=== PATIENT | male | born 1955 | race Caucasian/White ===

== ENCOUNTER 2021-07-24 10:24 | Inpatient (IN) ==
[2021-07-24] MEDS ORDERED: IOPAMIDOL 100 ML BOTTLE IV ONE (10:25)
--- NOTE | 2021-07-24 10:36 | Emergency Department Note ---
Neuro HPI General Chief Complaint: Stroke Symptoms Stated Complaint: stroke symptoms Time Seen by Provider: 07/24/21 10:34 Source: family Mode of arrival: EMS History of Present Illness HPI Narrative: Patient is a 66-year-old gentleman who arrives the emergency department by ambulance accompanied by his planing of occultly speaking. History is provided by the patient and his is somewhat limited due to his aphasia. The patient went to bed in his usual state of health at 9 PM last night. He got up to use the restroom around midnight his noticed he was having some difficulty producing speech and seemed to be quite confused, standing staring at a wall for no apparent reason. He went back to sleep and after awakening this morning he continues to have difficulty communicating. His notes that earlier today his speech did not contain words but was just garbled syllables. His symptoms have been gradually improving since they began. He has had similar problems in the past due to prior strokes. Related Data Home Medications Medication Instructions Recorded Confirmed allopurinol 100 mg tablet 200 mg PO HS 10/20/16 10/16/18 aspirin 81 mg tablet,delayed 81 mg PO DAILY 10/20/16 10/16/18 release fenofibrate nanocrystallized 160 160 mg PO HS 10/20/16 10/16/18 mg tablet (Triglide) fluoxetine 20 mg tablet (Sarafem) 20 mg PO DAILY 10/20/16 10/16/18 metformin 750 mg tablet,extended 750 mg PO BID 10/20/16 10/16/18 release 24 hr (Glucophage XR) metoprolol tartrate 25 mg tablet 25 mg PO BID 10/20/16 10/16/18 warfarin 10 mg tablet (Coumadin) 10 mg PO SUMOWEFR@1800 10/20/16 10/16/18 warfarin 7.5 mg tablet (Coumadin) 7.5 mg PO TUTHSA@1800 10/20/16 10/16/18 enoxaparin 100 mg/mL subcutaneous 100 mg SQ BID 10/16/18 10/16/18 syringe hydrocodone 5 mg-acetaminophen 325 1 tab PO Q8HP PRN 10/16/18 10/16/18 mg tablet hydrocortisone acetate 1 % topical 1 applic TP DAILYP PRN 10/16/18 10/16/18 ointment insulin glargine 100 unit/mL 30 unit SQ DAILY 10/16/18 10/16/18 subcutaneous solution levetiracetam 500 mg tablet 500 mg PO BID 10/16/18 10/16/18 lisinopril 2.5 mg tablet 2.5 mg PO DAILY 10/16/18 10/16/18 multivitamin-iron 9 mg-folic acid 1 tab PO DAILY 10/16/18 10/16/18 400 mcg-calcium and minerals tablet Allergies Allergy/AdvReac Type Severity Reaction Status Date / Time chlorhexidine Allergy Mild Hives Verified 10/16/18 10:04 [From Hibiclens] indomethacin AdvReac Intermediate Vomiting Verified 10/16/18 10:04 Review of Systems ROS ROS Narrative: Narrative: Limitations: ROS unobtainable due to patients medical condition [facility] Narrative Patient History Narrative: Narrative: Medical/Surgical/Family History All Active Problems (Updated 07/24/21 @ 14:56 by Jordy Jewell DO) Right knee sprain (Acute) Patellar tendon rupture (Acute) Acute cerebrovascular accident (CVA) (Acute) Medical History (Updated 07/24/21 @ 14:56 by Jordy Jewell DO) Right knee sprain Social History Smoking Status: Never smoker Alcohol Intake Frequency: holiday/special occasion only Substance Use: does not use Exam Narrative Narrative: I reviewed the vital signs. Gen -patient is awake and alert and in no acute distress. The patient is well groomed. HEENT -head is atraumatic. There is no conjunctival pallor or scleral icterus. Mucous membranes are moist. CV -S1-S2 regular rate and rhythm. Resp -breathing is nonlabored. Lungs are clear to auscultation bilaterally. There is no cyanosis. Derm -skin is warm and dry. MSK -present extremities are atraumatic. Psych -patient has appropriate affect. Neuro -patient answers questions appropriately and is oriented to person, place, time and situation. There is slight dysarthria and subtle expressive aphasia. Facial sensation is symmetric. There is no facial muscular asymmetry. E xtraocular motion is intact. Tongue protrudes in the midline. Palate elevates symmetrically. Shoulder shrug is symmetric. Muscle strength is 5 out of 5 in all 4 extremities. Peripheral sensation is grossly intact to light touch bilaterally. There is no jhqt-[id number] abnormality. There is no mvqktp-hi-ymkr abnormality. Visual barrera are intact to confrontation. NIH stroke scale is 2. Course Vital Signs Vital signs: Vital Signs Temperature 97.6 F 07/24/21 10:26 Pulse Rate 77 07/24/21 10:26 Respiratory Rate 18 07/24/21 10:26 Blood Pressure 148/123 07/24/21 10:26 Pulse Oximetry (%) 96 07/24/21 10:26 Temperature 97.6 F 07/24/21 10:26 Pulse Rate 51 L 07/24/21 14:02 Respiratory Rate 18 07/24/21 14:02 Blood Pressure 108/96 07/24/21 14:02 Pulse Oximetry (%) 97 07/24/21 14:02 MDM MDM Narrative Medical decision making narrative: Patient presents with aphasia and dysarthria. Given the timing of the onset of his symptoms and the mild nature he is not a candidate for IV thrombolytics. CT scan does not reveal any intracranial hemorrhage. There is no large vessel occlusion vascular imaging. On reassessment, the patient continues to have mild aphasia with even more subtle dysarthria than. To his initial exam. I discussed his history examination and diagnostic findings with Dr. Toth from the [place] neurology team. She recommends admission and considering transitioning the patient to a direct oral anticoagulant if his MRI does not reveal any signs of hemorrhage. I discussed the plan with the patient and his and they are agreeable. I discussed the patient's history examination and diagnostic findings with Dr. Lund, who agrees with the plan of care and accepts admission. Lab Data Lab results reviewed: Yes I reviewed the patient's lab results. Result diagrams: 07/24/21 10:37 07/24/21 10:37 Labs: Lab Results 07/24/21 07/24/21 07/24/21 Range/Units 10:37 10:37 10:37 WBC 9.5 (4.5-11.0) K/mcL RBC 5.95 (4.63-6.08) M/mcL Hgb 16.4 (13.7-17.5) g/dL Hct 49.5 (40.1-51.0) % POC Hct 51 (41-55) % MCV 83.2 (80.0-100.0) fL MCH 27.6 (26.0-34.0) pg MCHC 33.1 (31.0-36.0) g/dL RDW 15.5 H (11.5-14.5) % Plt Count 335 (140-440) K/mcL MPV 10.2 (7.4-10.4) fL Neut % (Auto) 81.5 H (38.0-78.0) % Lymph % (Auto) 11.8 L (15.5-49.0) % [place] % (Auto) 5.9 (1.0-12.0) % Eos % (Auto) 0.2 (0.0-7.0) % Baso % (Auto) 0.6 (0.0-2.0) % Lymph # (Auto) 1.12 L (1.50-4.80) K/mcL [place] # (Auto) 0.56 (0.10-0.90) K/mcL Eos # (Auto) 0.02 (0.00-0.70) K/mcL Baso # (Auto) 0.06 (0.00-0.30) K/mcL Absolute Neutrophils 7.76 (1.80-8.00) K/mcL POC PT (11.9-14.5) sec PT 19.3 H (11.9-14.5) sec POC INR (0.8-1.2) INR 1.6 H (0.9-1.1) APTT 33.1 (20.0-37.0) sec POC Sodium 137 (133-145) mEq/L Sodium 133 (133-145) mmol/L POC Potassium 4.3 (3.3-5.1) mEql/L Potassium 4.4 (3.3-5.1) mmol/L POC Chloride 102 (96-108) mEq/L Chloride 99 (96-108) mmol/L Carbon Dioxide 24 (22-30) mmol/L POC Total CO2 23 (22-30) mmol/L Anion Gap 10.0 (8.0-16.0) POC BUN 19 (6-20) mg/dL BUN 16 (8-23) mg/dL Creatinine 1.1 (0.7-1.2) mg/dL POC Creatinine 1.1 (0.6-1.2) mg/dL GFR Calculation 71 Glucose 126 H (70-105) mg/dL POC Glucose 131 H (70-105) mg/dL Calcium 9.6 (8.6-10.4) mg/dL POC WB Ioniz Calcium 1.20 (1.16-1.32) mmEq/L Total Bilirubin 0.4 (0.1-1.0) mg/dL AST 32 (<40) U/L ALT 31 (<40) U/L Alkaline Phosphatase 54 (39-117) U/L Troponin T (<0.03) ng/mL Total Protein 7.2 (5.9-8.4) gm/dL Albumin 4.3 (3.2-5.2) gm/dL Globulin 2.9 (2.2-3.7) gm/dL Albumin/Globulin Ratio 1.5 (1.0-2.3) 07/24/21 07/24/21 Range/Units 10:37 10:37 WBC (4.5-11.0) K/mcL RBC (4.63-6.08) M/mcL Hgb (13.7-17.5) g/dL Hct (40.1-51.0) % POC Hct (41-55) % MCV (80.0-100.0) fL MCH (26.0-34.0) pg MCHC (31.0-36.0) g/dL RDW (11.5-14.5) % Plt Count (140-440) K/mcL MPV (7.4-10.4) fL Neut % (Auto) (38.0-78.0) % Lymph % (Auto) (15.5-49.0) % [place] % (Auto) (1.0-12.0) % Eos % (Auto) (0.0-7.0) % Baso % (Auto) (0.0-2.0) % Lymph # (Auto) (1.50-4.80) K/mcL [place] # (Auto) (0.10-0.90) K/mcL Eos # (Auto) (0.00-0.70) K/mcL Baso # (Auto) (0.00-0.30) K/mcL Absolute Neutrophils (1.80-8.00) K/mcL POC PT 20.7 H (11.9-14.5) sec PT (11.9-14.5) sec POC INR 1.8 H (0.8-1.2) INR (0.9-1.1) APTT (20.0-37.0) sec POC Sodium (133-145) mEq/L Sodium (133-145) mmol/L POC Potassium (3.3-5.1) mEql/L Potassium (3.3-5.1) mmol/L POC Chloride (96-108) mEq/L Chloride (96-108) mmol/L Carbon Dioxide (22-30) mmol/L POC Total CO2 (22-30) mmol/L Anion Gap (8.0-16.0) POC BUN (6-20) mg/dL BUN (8-23) mg/dL Creatinine (0.7-1.2) mg/dL POC Creatinine (0.6-1.2) mg/dL GFR Calculation Glucose (70-105) mg/dL POC Glucose (70-105) mg/dL Calcium (8.6-10.4) mg/dL POC WB Ioniz Calcium (1.16-1.32) mmEq/L Total Bilirubin (0.1-1.0) mg/dL AST (<40) U/L ALT (<40) U/L Alkaline Phosphatase (39-117) U/L Troponin T < 0.01 (<0.03) ng/mL Total Protein (5.9-8.4) gm/dL Albumin (3.2-5.2) gm/dL Globulin (2.2-3.7) gm/dL Albumin/Globulin Ratio (1.0-2.3) ED POC Tests ED POC Tests: PRO - SARS Antigen Negative Discharge Plan Patient/Caregiver Discharge Instructions Pt seen by CLIENT REPRESENTATIVE/PA only: No Clinical Impression: Acute cerebrovascular accident (CVA) Patient Disposition: Xfer As Inpt ([facility]) Condition: Fair Follow up with: Funmi Ferro ARNP [Primary Care Provider] - Prescriptions: No Action warfarin [Coumadin] 10 MG Tablet 10 mg PO SUMOWEFR@1800 0RF warfarin [Coumadin] 7.5 MG Tablet 7.5 mg PO TUTHSA@1800 0RF allopurinol 100 MG Tablet 200 mg PO HS 0RF aspirin 81 MG Tablet.Dr 81 mg PO DAILY 0RF Label Comments: HOLDING FOR SURGERY fluoxetine [Sarafem] 20 MG Tablet 20 mg PO DAILY 0RF metformin [Glucophage XR] 750 MG Tab.Er.24h 750 mg PO BID 0RF metoprolol tartrate 25 MG Tablet 25 mg PO BID 0RF fenofibrate nanocrystallized [Triglide] 160 MG Tablet 160 mg PO HS 0RF insulin glargine 1 UNIT/0.01 ML unit 30 unit SQ DAILY 0RF levetiracetam 500 MG tablet 500 mg PO BID 0RF hydrocortisone acetate 28 GM ointment 1 applic TP DAILYP PRN (Reason: ECZEMA) 0RF Label Comments: APPLY TOPICALLY TO CHEST AND BACK DAILY NEEDED FOR ECZEMA. lisinopril 2.5 MG tablet 2.5 mg PO DAILY 0RF yzipbwwp-qrrx-RN-calcium-mins 1 TAB tablet 1 tab PO DAILY 0RF hydrocodone-acetaminophen 1 TAB tablet 1 tab PO Q8HP PRN (Reason: Pain) 0RF enoxaparin 100 MG/ML syringe 100 mg SQ BID 0RF Label Comments: BRIDGE FOR SURGERY; BEGINNING ON
[2021-07-24 10:49] LABS: POC INR 1.8 (0.8-1.2); POC Pro Time 20.7 sec (11.9-14.5)
[2021-07-24 10:52] LABS: POC Blood Urea Nitrogen 19 mg/dL (6-20); POC CO2 23 mmol/L (22-30); POC Chloride 102 mEq/L (96-108); POC Creatinine 1.1 mg/dL (0.6-1.2); POC Glucose, Random 131 mg/dL (70-105); POC Hematocrit 51 % (41-55); POC Potassium 4.3 mEql/L (3.3-5.1); POC Sodium 137 mEq/L (133-145)
--- NOTE | 2021-07-24 10:52 | Cat Scan Report ---
CLINICAL INFORMATION: Code stroke COMPARISON: None. TECHNIQUE: 2.5 mm helical slices were obtained in the skull base to vertex. Following reconstruction, axial reformatted images were reviewed at bone and parenchymal windows. The exam was performed using radiation dose optimization techniques including, but not limited to, automated exposure control, adjustment of the mA and/or kV according to patient size and use of iterative reconstruction technique. FINDINGS: The ventricles, sulci, fissures, and cisterns are enlarged compatible with moderate atrophy that is slightly more than expected for age. No extra-axial fluid collections are identified. Mild patchy chronic ischemic changes, in the deep cerebral white matter, are expected for age. Remote 6 mm lacunar infarct seen in the left lentiform nucleus. There is no hemorrhage, mass effect, or edema. Bone windows show no osseous abnormality. IMPRESSION: Moderate atrophy and chronic ischemic changes in the deep cerebral white slightly more than expected for age. No acute findings Interpreted and Authenticated by: Danny Khan 07/24/21
[2021-07-24 11:27] LABS: Basophils # (Auto) 0.06 K/mcL (0.00-0.30); Basophils % (Auto) 0.6 % (0.0-2.0); Eosinophils # (Auto) 0.02 K/mcL (0.00-0.70); Eosinophils % (Auto) 0.2 % (0.0-7.0); Hematocrit 49.5 % (40.1-51.0); Hemoglobin 16.4 g/dL (13.7-17.5); Lymphocytes # (Auto) 1.12 K/mcL (1.50-4.80); Lymphocytes % (Auto) 11.8 % (15.5-49.0); Mean Cell Volume 83.2 fL (80.0-100.0); Mean Corpuscular HGB Conc 33.1 g/dL (31.0-36.0); Mean Platelet Volume 10.2 fL (7.4-10.4); Monocytes # (Auto) 0.56 K/mcL (0.10-0.90); Monocytes % (Auto) 5.9 % (1.0-12.0); Neutrophils % (Auto) 81.5 % (38.0-78.0); Platelet Count 335 K/mcL (140-440); RBC 5.95 M/mcL (4.63-6.08); Red Cell Distribution Width 15.5 % (11.5-14.5); WBC 9.5 K/mcL (4.5-11.0)
--- NOTE | 2021-07-24 11:29 | Cat Scan Report ---
CLINICAL INFORMATION: Code stroke COMPARISON: None. TECHNIQUE: 80 cc of Isovue-370 were injected intravenously , and using SmartPrep to maximize cerebral arterial opacification, 0.625 mm helical slices were obtained from the skull base through the cerebral vertex. Following reconstruction , sagittal, coronal and axial reformatted images were processed and reviewed at multiple windows and levels. 3D volume rendered and MIP images were acquired at a independent workstation. The exam was performed using radiation dose optimization techniques including, but not limited to, automated exposure control, adjustment of the mA and/or kV according to patient size and use of iterative reconstruction technique. FINDINGS: The intracranial internal carotid, vertebral, basilar, anterior, middle and posterior cerebral arteries and their branches are well-opacified and normal in contour and caliber without significant stenosis, occlusion or other pathology. Superficial/deep cerebral veins and deep venous sinuses are widely patent IMPRESSION: Normal exam Interpreted and Authenticated by: Danny Khan 07/24/21
--- NOTE | 2021-07-24 11:39 | Cat Scan Report ---
CLINICAL INFORMATION: Code stroke COMPARISON: None. TECHNIQUE: 80 cc of Isovue-300 were injected intravenously followed by 40 cc of normal saline flush. Using SmartPrep, 0.625 helical slices were obtained from the thoracic aortic arch through the marshall of [place]. Following reconstruction, 2.5 mm sagittal, coronal and axial reformatted images were processed. MIPS , 3-D volume rendering and CPR images were also constructed. The exam was performed using radiation dose optimization techniques including, but not limited to, automated exposure control, adjustment of the mA and/or kV according to patient size and use of iterative reconstruction technique. FINDINGS: The thoracic aortic arch is normal diameter with minimal intimal thickening and conventional aortic branching. The brachiocephalic, both subclavian, both common, internal and external carotid and both vertebral arteries are widely patent without significant abnormality. No soft tissue abnormality. IMPRESSION: Normal exam Interpreted and Authenticated by: Danny Khan 07/24/21
[2021-07-24 11:43] LABS: Partial Thromboplastin Time 33.1 sec (20.0-37.0)
[2021-07-24 11:44] LABS: INR 1.6 (0.9-1.1); Prothrombin Time 19.3 sec (11.9-14.5)
[2021-07-24 11:52] LABS: ALT/SGPT 31 U/L (<40); AST/SGOT 32 U/L (<40); Albumin 4.3 gm/dL (3.2-5.2); Albumin/Globulin Ratio 1.5 (1.0-2.3); Alkaline Phosphatase 54 U/L (39-117); Bilirubin,Total 0.4 mg/dL (0.1-1.0); Blood Urea Nitrogen 16 mg/dL (8-23); Calcium 9.6 mg/dL (8.6-10.4); Carbon Dioxide 24 mmol/L (22-30); Chloride 99 mmol/L (96-108); Globulin 2.9 gm/dL (2.2-3.7); Glomerular Filtration Rate 71; Glucose 126 mg/dL (70-105)
--- NOTE | 2021-07-24 13:22 | Internal Med History&Physical ---
HPI History of Present Illness Patient information: Note initiated : 07/24/21 at 1:18 pm Service Date, if different from initiated Date: [] Patient: Faustino White 66 y/o M admitted on for stroke symptoms. Chief Complaint: [] History of present illness: Mr. White is a 66 year old male with a history of hypertension, diabetes mellitus, seizure, mechanical aortic valve, prior CVAs, gout who presented to the emergency department with confusion and difficulty speaking. In the emergency department, the patient was felt to have aphasia concerning for stroke. Noncontrast CT head was negative for acute ischemic changes but there was moderate out for tree and chronic ischemic changes in the deep cerebral white matter slightly more than expected for age, CTA head and neck were normal. INR was 1.6. The patient does take Coumadin for the mechanical aortic valve however has been having difficulty keeping his INR at goal therapeutic levels. The patient was afebrile, vitals stable, routine blood work was fairly unremarkable. Telestroke was consulted, the recommendation was made to admit the patient to the hospital for further work-up and and management that would include MRI brain, permissive blood pressure, n.p.o. until cleared by speech, aspirin until return to full anticoagulation and consideration of transitioning to Eliquis. Hospital medicine was consulted for admission. Review of systems Constitutional: no fever, fatigue, or weight loss Eyes: no vision changes or pain Cardiovascular: no chest pain, no palpitations Respiratory: no cough or dyspnea Gastrointestinal: no abdominal pain, no nausea, vomiting, or diarrhea Genitourinary: no dysuria or difficulty voiding Musculoskeletal: no arthralgia or myalgia Integumentary: no skin lesion or wound Neurological: Positive for dysarthria and aphasia, no focal weakness or numbness Psychiatric: Positive for confusion Physical exam Head: Atraumatic, normal inspection. Eyes: normal appearance, no scleral icterus. Neck: full ROM Respiratory: no respiratory distress. Cardiovascular: Sternotomy scar, normal rate and rhythm, S1, mechanical S2 GI/Abdominal: soft, nontender, no guarding, prior ileostomy scar. Extremities: full range of motion, nontender. Neurological: CN II-XII intact, intact motor, intact sensation, positive for receptive and expressive aphasia Psychiatric: normal mood, positive for confusion. Skin: warm, normal color PFSH PFSH All Active Problems (Updated 10/26/16 @ 07:22 by Lev Hoffman PA-C) Right knee sprain (Acute) Patellar tendon rupture (Acute) Medical History (Updated 10/26/16 @ 07:22 by Lev Hoffman PA-C) Right knee sprain Social History alcohol intake frequency: holiday/special occasion only substance use type: does not use MEDS/ALLERGIES Home Medications and Allergies Home Medications Medication Instructions Recorded Confirmed Type allopurinol 100 mg tablet 200 mg PO HS 10/20/16 10/16/18 History aspirin 81 mg tablet,delayed 81 mg PO DAILY 10/20/16 10/16/18 History release fenofibrate nanocrystallized 160 160 mg PO HS 10/20/16 10/16/18 History mg tablet (Triglide) fluoxetine 20 mg tablet (Sarafem) 20 mg PO DAILY 10/20/16 10/16/18 History metformin 750 mg tablet,extended 750 mg PO BID 10/20/16 10/16/18 History release 24 hr (Glucophage XR) metoprolol tartrate 25 mg tablet 25 mg PO BID 10/20/16 10/16/18 History warfarin 10 mg tablet (Coumadin) 10 mg PO SUMOWEFR@1800 10/20/16 10/16/18 History warfarin 7.5 mg tablet (Coumadin) 7.5 mg PO TUTHSA@1800 10/20/16 10/16/18 History enoxaparin 100 mg/mL subcutaneous 100 mg SQ BID 10/16/18 10/16/18 History syringe hydrocodone 5 mg-acetaminophen 325 1 tab PO Q8HP PRN 10/16/18 10/16/18 History mg tablet hydrocortisone acetate 1 % topical 1 applic TP DAILYP PRN 10/16/18 10/16/18 History ointment insulin glargine 100 unit/mL 30 unit SQ DAILY 10/16/18 10/16/18 History subcutaneous solution levetiracetam 500 mg tablet 500 mg PO BID 10/16/18 10/16/18 History lisinopril 2.5 mg tablet 2.5 mg PO DAILY 10/16/18 10/16/18 History multivitamin-iron 9 mg-folic acid 1 tab PO DAILY 10/16/18 10/16/18 History 400 mcg-calcium and minerals tablet Allergies Allergy/AdvReac Type Severity Reaction Status Date / Time chlorhexidine Allergy Mild Hives Verified 10/16/18 10:04 [From Hibiclens] indomethacin AdvReac Intermediate Vomiting Verified 10/16/18 10:04 EXAM Constitutional Vitals: Temp Pulse Resp BP Pulse Ox 97.6 F 73 18 129/76 96 07/24/21 10:26 07/24/21 12:31 07/24/21 12:31 07/24/21 12:31 07/24/21 12:31 DATA Data Completed and Pending Labs: Labs from last 24 hours 07/24/21 07/24/21 07/24/21 10:37 10:37 10:37 WBC RBC Hgb Hct POC Hct 51 MCV MCH MCHC RDW Plt Count MPV Neut % (Auto) Lymph % (Auto) [place] % (Auto) Eos % (Auto) Baso % (Auto) Lymph # (Auto) [place] # (Auto) Eos # (Auto) Baso # (Auto) Absolute Neutrophils POC PT 20.7 H PT POC INR 1.8 H INR APTT POC Sodium 137 Sodium 133 POC Potassium 4.3 Potassium 4.4 POC Chloride 102 Chloride 99 Carbon Dioxide 24 POC Total CO2 23 Anion Gap 10.0 POC BUN 19 BUN 16 Creatinine 1.1 POC Creatinine 1.1 GFR Calculation 71 Glucose 126 H POC Glucose 131 H Calcium 9.6 POC WB Ioniz Calcium 1.20 Total Bilirubin 0.4 AST 32 ALT 31 Alkaline Phosphatase 54 Troponin T < 0.01 Total Protein 7.2 Albumin 4.3 Globulin 2.9 Albumin/Globulin Ratio 1.5 07/24/21 07/24/21 10:37 10:37 WBC 9.5 RBC 5.95 Hgb 16.4 Hct 49.5 POC Hct MCV 83.2 MCH 27.6 MCHC 33.1 RDW 15.5 H Plt Count 335 MPV 10.2 Neut % (Auto) 81.5 H Lymph % (Auto) 11.8 L [place] % (Auto) 5.9 Eos % (Auto) 0.2 Baso % (Auto) 0.6 Lymph # (Auto) 1.12 L [place] # (Auto) 0.56 Eos # (Auto) 0.02 Baso # (Auto) 0.06 Absolute Neutrophils 7.76 POC PT PT 19.3 H POC INR INR 1.6 H APTT 33.1 POC Sodium Sodium POC Potassium Potassium POC Chloride Chloride Carbon Dioxide POC Total CO2 Anion Gap POC BUN BUN Creatinine POC Creatinine GFR Calculation Glucose POC Glucose Calcium POC WB Ioniz Calcium Total Bilirubin AST ALT Alkaline Phosphatase Troponin T Total Protein Albumin Globulin Albumin/Globulin Ratio A/P Narrative A/P Narrative: Assessment: 66 year old male with a history of hypertension, diabetes mellitus, seizure, mechanical aortic valve, prior CVAs, gout who presented to the emergency department with confusion and difficulty speaking, admitted for work- up of acute ischemic stroke. Noncontrast CT head did not reveal an acute infarct, CTA head and neck were normal. INR in the ED was 1.6. #Receptive and expressive aphasia #Encephalopathy #Concern for acute ischemic stroke #Mechanical aortic valve on Coumadin #Subtherapeutic INR #History of ischemic stroke #Diabetes mellitus #Gout #Obesity BMI 37 Plan -Aspirin 81 mg daily until return to full anticoagulation. -Permissive blood pressure, labetalol IV as needed for BP > 220/110. -Neurochecks and NIHSS. -MRI brain. -Transthoracic echocardiogram. -Hemoglobin A1c and lipid panel. -Home medication reconciliation, resume essential meds. -Consider starting Eliquis if MRI brain negative for hemorrhage, otherwise resume Coumadin with Lovenox bridge. -PT/OT/speech consults. -N.p.o. pending speech evaluation. -DVT prophylaxis: Lovenox until full anticoagulation resumed. -CODE STATUS: Full -Disposition: TBD, will depend on therapy recommendations and clinical course. Time Spent With Patient Time: Total time spent is greater than 50% in coordination of care (as documented) at patient's floor/unit and/or counseling patient: QUALITY Stroke Symptom Onset Unknown: Yes
[2021-07-24] MEDS ORDERED: LABETALOL 5 MG/ML ML IV PRN (17:22)
[2021-07-24] MEDS ORDERED: ONDANSETRON 4 MG/2 ML VIAL IV PRN (17:22)
--- NOTE | 2021-07-24 18:24 | Magnetic Resonance Report ---
CLINICAL INFORMATION: Dysarthria COMPARISON: None. TECHNIQUE:Sagittal T1 FLAIR, axial diffusion ADC and axial T2 FLAIR were obtained. FINDINGS: The ventricles, sulci, fissures and cisterns are symmetrically enlarged without mild age-related atrophy. No extra-axial fluid collections identified. Scattered chronic ischemic foci in deep cerebral white matter expected for age. There is a 1 cm remote lacunar infarct in the right frontal periventricular white matter. No region of restricted diffusion to suggest an acute infarct. No hemorrhage or edema. IMPRESSION: Mild atrophy with scattered chronic deep cerebral white matter ischemia remote lacunar infarct deep right frontal white matter. No evidence of an acute infarct or hemorrhage. Interpreted and Authenticated by: Danny Khan 07/24/21
[2021-07-24 18:47] LABS: INR 1.5 (0.9-1.1); Prothrombin Time 18.6 sec (11.9-14.5)
[2021-07-24] MEDS: DOCUSATE SODIUM 100 MG CAPSULE PO SCH (20:00)
[2021-07-24] MEDS: 0.9 % SODIUM CHLORIDE 10 ML SYRINGE IV SCH ×2 (20:03→21:30)
[2021-07-24] MEDS ORDERED: SENNOSIDES 1 TABLET PO SCH (21:00)
[2021-07-24] MEDS: ENOXAPARIN 120 MG/0.8 ML SYRINGE SQ SCH ×2 (21:26→21:29)
[2021-07-25] MEDS: 0.9 % SODIUM CHLORIDE 10 ML SYRINGE IV SCH (05:02)
[2021-07-25 07:15] LABS: INR 1.4 (0.9-1.1)
[2021-07-25 07:44] LABS: Hemoglobin A1C 6.2 % Hgb (4.0-6.0)
[2021-07-25] MEDS ORDERED: ENOXAPARIN 40 MG/0.4 ML SYRINGE SQ SCH (09:00)
[2021-07-25] MEDS ORDERED: ASPIRIN 81 MG TAB.CHEW CHEWED SCH (09:00)
--- NOTE | 2021-07-25 11:00 | Discharge Summary ---
Discharge Provider Provider Patient information: Note initiated : 07/25/21 at 10:54 am Service Date, if different from initiated Date: [] Patient: Faustino White 66 y/o M admitted on 07/24/21 for stroke symptoms. Chief Complaint: [] Date of admission: 07/24/21 17:10 Discharge date: 07/25/21 Primary care physician: Funmi Ferro Consults: 07/24/21 Consult to Physician [CONS] Stat Comment: Consulting Provider: Yfn Lund Reason For Exam: Physician to Consult Discharge Meds Discharge Medications Home Medications allopurinol 100 mg tablet 200 mg PO HS 10/20/16 [History Confirmed 07/24/21 Last Taken Unknown] aspirin 81 mg tablet,delayed release 81 mg PO DAILY 10/20/16 [History Confirmed 07/24/21 Last Taken 10/20/16] fenofibrate nanocrystallized 160 mg tablet (Triglide) 160 mg PO HS 10/20/16 [History Confirmed 07/24/21 Last Taken Unknown] fluoxetine 20 mg tablet (Sarafem) 20 mg PO DAILY 10/20/16 [History Confirmed 07/24/21 Last Taken Unknown] metformin 750 mg tablet,extended release 24 hr (Glucophage XR) 750 mg PO BID 10/20/16 [History Confirmed 07/24/21 Last Taken 10/24/16] metoprolol tartrate 25 mg tablet 25 mg PO BID 10/20/16 [History Confirmed 07/24/21 Last Taken 10/25/16 09:00] warfarin 10 mg tablet (Coumadin) See Rx Instructions .ROUTE .COMPLEX 10/20/16 [History Confirmed 07/24/21 Last Taken 10/20/16] warfarin 7.5 mg tablet (Coumadin) 7.5 mg PO TUTHSA@1800 10/20/16 [History Confirmed 07/24/21 Last Taken 10/20/16] hydrocortisone acetate 1 % topical ointment 1 applic TP DAILYP PRN 10/16/18 [History Confirmed 07/24/21 Last Taken Unknown] insulin glargine 100 unit/mL subcutaneous solution (Lantus U-100 Insulin) 25 unit SQ DAILY 10/16/18 [History Confirmed 07/24/21 Last Taken Unknown] levetiracetam 500 mg tablet (Keppra) 500 mg PO AC 10/16/18 [History Confirmed 07/24/21 Last Taken Unknown] lisinopril 2.5 mg tablet (Zestril) 2.5 mg PO DAILY 10/16/18 [History Confirmed 07/24/21 Last Taken Unknown] multivitamin-iron 9 mg-folic acid 400 mcg-calcium and minerals tablet 1 tab PO D AILY 10/16/18 [History Confirmed 07/24/21 Last Taken Unknown] levetiracetam 750 mg tablet (Keppra) 750 mg PO HS 07/24/21 [History Confirmed 07/24/21 Last Taken Unknown] enoxaparin 120 mg/0.8 mL subcutaneous syringe 120 mg (0.8 mL) SUBCUT BID 5 Days #8 ml 07/25/21 [Rx Last Taken Unknown] COURSE Hospital Course Hospital course: Mr. White is a 66 year old male with a history of hypertension, diabetes mellitus, seizure, mechanical aortic valve, prior CVAs, gout who presented to the emergency department with confusion and difficulty speaking. In the emergency department, the patient was felt to have aphasia concerning for stroke. Noncontrast CT head was negative for acute ischemic changes but there was moderate out for tree and chronic ischemic changes in the deep cerebral white matter slightly more than expected for age, CTA head and neck were normal. INR was 1.6. The patient does take Coumadin for the mechanical aortic valve however has been having difficulty keeping his INR at goal therapeutic levels. The patient was afebrile, vitals stable, routine blood work was fairly unremarkable. Telestroke was consulted, the recommendation was made to admit the patient to the hospital for further work-up and and management that would include MRI brain, permissive blood pressure, n.p.o. until cleared by speech, aspirin until return to full anticoagulation and consideration of transitioning to Eliquis. Hospital medicine was consulted for admission. 07/25 MRI brain was negative for acute infarcts, there was mild atrophy with scattered chronic deep cerebral white matter ischemic changes, a remote lacunar infarct in the deep right frontal white matter. The patient is back to baseline today. I suspect the patient's aphasia was secondary to a confusional state similar to delirium, he is at risk for this given the prior frontal lobe stroke. The patient likely has cognitive impairment at baseline and increased risk for developing dementia. I discussed the patient with neurology at [facility], the recommendation was to continue Coumadin for anticoagulation for the patient's mechanical aortic valve. The patient is also on aspirin 81 mg daily. The patient was started on therapeutic Lovenox as a anticoagulation bridge until INR is therapeutic once again. The patient was discharged to home, he will resume Coumadin as before admission and follow with the INR clinic. 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 Transthoracic echocardiogram report pending at discharge. Physical exam Head: Atraumatic, normal inspection. Eyes: normal appearance, no scleral icterus. Neck: full ROM Respiratory: no respiratory distress. Cardiovascular: Sternotomy scar, normal rate and rhythm, S1, mechanical S2 GI/Abdominal: soft, nontender, no guarding, prior ileostomy scar. Extremities: full range of motion, nontender. Neurological: CN II-XII intact, intact motor, intact sensation, positive for receptive and expressive aphasia Psychiatric: normal mood, positive for confusion. Skin: warm, normal color Discharge diagnosis: Resolved aphasia Secondary discharge diagnosis: Mechanical aortic valve History of stroke Time Spent with Patient Time attestation: Total time spent providing and/or coordinating discharge services: EXAM Constitutional Vitals: Temp Pulse Resp BP Pulse Ox 97.1 F 68 20 118/69 93 07/25/21 07:24 07/25/21 07:24 07/25/21 07:24 07/25/21 07:24 07/25/21 07:24 Discharge Data Data Completed and Pending Labs on day of discharge: Labs from last 24 hours 07/25/21 07/25/21 07/24/21 06:06 06:05 17:34 WBC RBC Hgb Hct MCV MCH MCHC RDW Plt Count MPV Neut % (Auto) Lymph % (Auto) [place] % (Auto) Eos % (Auto) Baso % (Auto) Lymph # (Auto) [place] # (Auto) Eos # (Auto) Baso # (Auto) Absolute Neutrophils PT 18.0 H 18.6 H INR 1.4 H 1.5 H APTT Sodium Potassium Chloride Carbon Dioxide Anion Gap BUN Creatinine GFR Calculation Glucose Hemoglobin A1c 6.2 H Estim Average Glucose 131 Calcium Total Bilirubin AST ALT Alkaline Phosphatase Troponin T Total Protein Albumin Globulin Albumin/Globulin Ratio Triglycerides 319 H Cholesterol 168 LDL Cholesterol, Calc 81 Non-HDL Cholesterol 144 H HDL Cholesterol 24 L 07/24/21 07/24/21 07/24/21 10:37 10:37 10:37 WBC RBC Hgb Hct MCV MCH MCHC RDW Plt Count MPV Neut % (Auto) Lymph % (Auto) [place] % (Auto) Eos % (Auto) Baso % (Auto) Lymph # (Auto) [place] # (Auto) Eos # (Auto) Baso # (Auto) Absolute Neutrophils PT 19.3 H INR 1.6 H APTT 33.1 Sodium 133 Potassium 4.4 Chloride 99 Carbon Dioxide 24 Anion Gap 10.0 BUN 16 Creatinine 1.1 GFR Calculation 71 Glucose 126 H Hemoglobin A1c Estim Average Glucose Calcium 9.6 Total Bilirubin 0.4 AST 32 ALT 31 Alkaline Phosphatase 54 Troponin T < 0.01 Total Protein 7.2 Albumin 4.3 Globulin 2.9 Albumin/Globulin Ratio 1.5 Triglycerides Cholesterol LDL Cholesterol, Calc Non-HDL Cholesterol HDL Cholesterol 07/24/21 10:37 WBC 9.5 RBC 5.95 Hgb 16.4 Hct 49.5 MCV 83.2 MCH 27.6 MCHC 33.1 RDW 15.5 H Plt Count 335 MPV 10.2 Neut % (Auto) 81.5 H Lymph % (Auto) 11.8 L [place] % (Auto) 5.9 Eos % (Auto) 0.2 Baso % (Auto) 0.6 Lymph # (Auto) 1.12 L [place] # (Auto) 0.56 Eos # (Auto) 0.02 Baso # (Auto) 0.06 Absolute Neutrophils 7.76 PT INR APTT Sodium Potassium Chloride Carbon Dioxide Anion Gap BUN Creatinine GFR Calculation Glucose Hemoglobin A1c Estim Average Glucose Calcium Total Bilirubin AST ALT Alkaline Phosphatase Troponin T Total Protein Albumin Globulin Albumin/Globulin Ratio Triglycerides Cholesterol LDL Cholesterol, Calc Non-HDL Cholesterol HDL Cholesterol Discharge Plan Patient/Caregiver Discharge Instructions Activity: increase activity as tolerated Diet: Consistent Carbohydrate Prescriptions: New enoxaparin 120 mg/0.8 mL Syringe 120 mg subcut BID 5 Days Qty: 8 2RF Rx Instructions: Take lovenox twice a day until INR at goal range. Continued warfarin [Coumadin] 10 MG tablet See Rx Instructions .ROUTE .COMPLEX 0RF Rx Instructions: 10 mg orally tuesday and tuesday only warfarin [Coumadin] 7.5 MG tablet 7.5 mg PO TUTHSA@1800 0RF allopurinol 100 MG tablet 200 mg PO HS 0RF aspirin 81 MG tablet,delayed release (DR/EC) 81 mg PO DAILY 0RF Label Comments: HOLDING FOR SURGERY fluoxetine [Sarafem] 20 MG tablet 20 mg PO DAILY 0RF metformin [Glucophage XR] 750 MG tablet extended release 24 hr 750 mg PO BID 0RF metoprolol tartrate 25 MG tablet 25 mg PO BID 0RF fenofibrate nanocrystallized [Triglide] 160 MG tablet 160 mg PO HS 0RF Lantus U-100 Insulin 1 UNIT/0.01 ML unit 25 unit SQ DAILY 0RF levetiracetam [Keppra] 500 MG tablet 500 mg PO AC 0RF hydrocortisone acetate 28 GM ointment 1 applic TP DAILYP PRN (Reason: ECZEMA) 0RF Label Comments: APPLY TOPICALLY TO CHEST AND BACK DAILY NEEDED FOR ECZEMA. lisinopril [Zestril] 2.5 MG tablet 2.5 mg PO DAILY 0RF pjbvwebo-jmyx-EF-calcium-mins 1 TAB tablet 1 tab PO DAILY 0RF levetiracetam [Keppra] 750 mg Tablet 750 mg PO HS 0RF Discontinued enoxaparin [Lovenox] 100 MG/ML syringe 100 mg SQ BID 0RF Label Comments: BRIDGE FOR SURGERY; BEGINNING ON Follow Up Plan Follow up with: Funmi Ferro ARNP [Primary Care Provider] - Patient Disposition: Home, Self-Care Prognosis: Fair Overall status at discharge: patient is back to baseline Discharge Orders: Discharge Order (Routine); Ordered 07/25/21 Ordered By: Yfn OLIVARES VTE Deep Vein Thrombosis/Pulmonary Embolism Present on Admission: No
[2021-07-25] MEDS: DOCUSATE SODIUM 100 MG CAPSULE PO SCH (11:16)
[2021-07-25] MEDS: ENOXAPARIN 120 MG/0.8 ML SYRINGE SQ SCH (11:17)
--- NOTE | 2021-07-26 09:25 | EKG ---
[facility] Test Date: 2021-07-24 Pat Name: Faustino White Department: ED Room: Gender: Male Compliance Administrator: MYAH : [id number] Requested By: Jordy Jewell Order Number: [id number] Reading MD: Jax Michael Measurements Intervals [place] Rate: 72 P: -9 IA: 262 QRS: 38 QRSD: 173 T: 15 QT: 438 QTc: 480 Interpretive Statements Sinus rhythm Prolonged IA interval Right bundle branch block Electronically Signed On 07-26-2021 9:25:17 PDT by Jax Michael /[id number]
== END 2021-07-25 12:40 | disposition home or self-care (01) | DRG 886 ==
LOC: ED 10:24 → MEDSUR 17:10
PROVIDERS: ADMIT Internal Medicine; ATTEND Internal Medicine

== ENCOUNTER 2023-03-30 12:19 | Inpatient (IN) ==
[2023-03-30] MEDS ORDERED: IOPAMIDOL 100 ML BOTTLE IV ONE (12:20)
[2023-03-30] MEDS ORDERED: PIPERACILLIN SODIUM/TAZOBACTAM 3.375 GM in DEXTROSE 5% IN WATER 50 ML IV ONE (12:29)
[2023-03-30] MEDS ORDERED: VANCOMYCIN 1,500 MG in 0.9 % SODIUM CHLORIDE 500 ML IV ONE (12:29)
[2023-03-30] MEDS ORDERED: 0.9 % SODIUM CHLORIDE 1,000 ML IV ONE ×2 (12:31)
[2023-03-30] MEDS ORDERED: ACETAMINOPHEN 1,000 MG/100 ML BAG IV ONE ×2 (12:37→23:21)
[2023-03-30 12:44] LABS: POC Calcium, Ionized 1.09 (1.16-1.32); POC Creatinine 1.1 (0.6-1.2); POC Potassium 4.5 (3.3-5.1)
[2023-03-30] MEDS ORDERED: 0.9 % SODIUM CHLORIDE 250 ML IV SCH ×4 (13:30→16:00)
[2023-03-30] MEDS ORDERED: NOREPINEPHRINE BITARTRATE 8 MG in 0.9 % SODIUM CHLORIDE 242 ML IV SCH (13:30)
[2023-03-30] MEDS ORDERED: VASOPRESSIN 20 UNIT in DEXTROSE 5% IN WATER 99 ML IV SCH ×2 (14:00→14:45)
[2023-03-30] MEDS ORDERED: KETOROLAC 30 MG/ML VIAL IV ONE (14:16)
[2023-03-30 14:37] LABS: Basophils # (Auto) 0.04 K/mcL (0.00-0.30); Basophils % (Auto) 0.3 % (0.0-2.0); Eosinophils # (Auto) 0 K/mcL (0.00-0.70); Eosinophils % (Auto) 0 % (0.0-7.0); Hematocrit 49.1 % (40.1-51.0); Hemoglobin 15.7 g/dL (13.7-17.5); Lymphocytes # (Auto) 0.48 K/mcL (1.50-4.80); Lymphocytes % (Auto) 3.8 % (15.5-49.0); Mean Cell Volume 80.2 fL (80.0-100.0); Mean Platelet Volume 10.3 fL (8.8-12.5); Monocytes # (Auto) 0.51 K/mcL (0.10-0.90); Neutrophils % (Auto) 91.3 % (38.0-78.0); Platelet Count 219 K/mcL (140-440); RBC 6.12 M/mcL (4.63-6.08); Red Cell Distribution Width 18.4 % (11.5-14.5); WBC 12.7 K/mcL (4.5-11.0)
[2023-03-30 14:50] LABS: proBNP 804.7 pg/mL (<125.0)
[2023-03-30 15:13] LABS: INR 9.7 (0.9-1.1); Prothrombin Time 81.1 sec (11.9-14.5)
[2023-03-30 15:34] LABS: POC Calcium, Ionized 1.05 (1.16-1.32); POC Creatinine 1.4 (0.6-1.2); POC Potassium 3.9 (3.3-5.1)
[2023-03-30] MEDS ORDERED: EPINEPHrine 4 MG in 0.9 % SODIUM CHLORIDE 246 ML IV SCH (16:00)
[2023-03-30 17:17] LABS: Appearance,Urine CLOUDY (Clear); Bacteria,Urine FEW /hpf (0); Bilirubin,Urine Negative (Negative); Color,Urine Amber; Culture Indicated,Urine Yes; Glucose,Urine (UA) Negative (Negative); Ketones,Urine Negative (Negative); Leukocyte Esterase,Urine 250 /uL (Negative); Mucus,Urine MOD /hpf; Nitrate,Urine Negative (Negative); Protein,Urine 100 mg/dL (Negative); Specific Gravity,Urine 1.047 (1.000-1.035); Urine Budding Yeast FEW /hpf; Urine RBC 112 /hpf (0-3); Urine Squamous Epithelial Cell < 1 /hpf (0-4); Urine WBC > 182 /hpf (0-4)
[2023-03-30 18:02] LABS: ALT/SGPT 28 U/L (<40); AST/SGOT 25 U/L (<40); Albumin 3.6 gm/dL (3.2-5.2); Alkaline Phosphatase 76 U/L (39-117); Bilirubin,Direct 0.8 mg/dL (<0.3); Bilirubin,Total 1.7 mg/dL (0.1-1.0); Globulin 2.3 gm/dL (2.2-3.7)
[2023-03-30] MEDS ORDERED: fentaNYL 100 MCG/2 ML VIAL IV ONE (18:33)
[2023-03-30] MEDS ORDERED: IPRATROPIUM/ALBUTEROL 3 ML AMPUL.NEB NEB PRN (19:37)
[2023-03-30] MEDS ORDERED: ALBUTEROL SULFATE 2.5 MG/3 ML NEBULIZER NEB PRN (19:37)
[2023-03-30] MEDS ORDERED: morphine 4 MG/ML VIAL NEB PRN (19:37)
[2023-03-30] MEDS ORDERED: LACTOPEROXI/GLUC OXID/POT THIO 1 EACH GEL..EA. TOPICAL PRN (19:37)
[2023-03-30] MEDS ORDERED: LORazepam 2 MG/ML VIAL IV PRN (19:37)
[2023-03-30] MEDS ORDERED: morphine 4 MG/ML VIAL IV PRN (19:37)
[2023-03-30] MEDS ORDERED: ONDANSETRON 4 MG/2 ML VIAL IV PRN ×2 (19:37)
[2023-03-30] MEDS ORDERED: HYDROmorphone 1 MG/ML SYRINGE IV PRN (19:37)
[2023-03-30] MEDS ORDERED: ONDANSETRON 4 MG ODT TABLET SL PRN (19:37)
[2023-03-30] MEDS ORDERED: DOCUSATE SODIUM 100 MG CAPSULE PO SCH (21:00)
[2023-03-30] MEDS: DOCUSATE SODIUM 100 MG CAPSULE PO SCH (21:04)
[2023-03-30] MEDS: SCOPOLAMINE 1 PATCH PATCH TOPICAL SCH (21:04)
[2023-03-30] MEDS: 0.9 % SODIUM CHLORIDE 10 ML SYRINGE IV SCH (21:04)
[2023-03-30] MEDS: SENNOSIDES 1 TABLET PO SCH (21:04)
[2023-03-30] MEDS ORDERED: VANCOMYCIN PER PHARMACY IV ONE (21:43)
[2023-03-30] MEDS ORDERED: DEXTROSE 31 GM ORAL.SUSP PO PRN (21:45)
[2023-03-30] MEDS ORDERED: DEXTROSE 50% 50 ML VIAL IV PRN (21:45)
[2023-03-30] MEDS ORDERED: 0.9 % SODIUM CHLORIDE 10 ML SYRINGE IV SCH (22:00)
[2023-03-30] MEDS: 0.9 % SODIUM CHLORIDE 1,000 ML IV SCH (22:21)
[2023-03-30] MEDS: PIPERACILLIN SODIUM/TAZOBACTAM 3.375 GM in DEXTROSE 5% IN WATER 50 ML IV SCH (22:43)
[2023-03-30] MEDS: ACETAMINOPHEN 1,000 MG/100 ML BAG IV PRN (23:22)
[2023-03-31] MEDS: 0.9 % SODIUM CHLORIDE 1,000 ML IV SCH ×5 (05:19→21:31)
[2023-03-31] MEDS: 0.9 % SODIUM CHLORIDE 10 ML SYRINGE IV SCH ×4 (05:29→21:33)
[2023-03-31] MEDS: PIPERACILLIN SODIUM/TAZOBACTAM 3.375 GM in DEXTROSE 5% IN WATER 50 ML IV SCH (05:29)
[2023-03-31] MEDS ORDERED: ACETAMINOPHEN 1,000 MG/100 ML BAG IV ONE (05:46)
[2023-03-31] MEDS: ACETAMINOPHEN 1,000 MG/100 ML BAG IV PRN ×3 (05:48→17:47)
[2023-03-31 06:36] LABS: Basophils # (Auto) 0.05 K/mcL (0.00-0.30); Basophils % (Auto) 0.4 % (0.0-2.0); Eosinophils # (Auto) 0.02 K/mcL (0.00-0.70); Eosinophils % (Auto) 0.1 % (0.0-7.0); Hematocrit 41.3 % (40.1-51.0); Hemoglobin 13.2 g/dL (13.7-17.5); Lymphocytes # (Auto) 0.53 K/mcL (1.50-4.80); Lymphocytes % (Auto) 3.7 % (15.5-49.0); Mean Platelet Volume 10.2 fL (8.8-12.5); Monocytes % (Auto) 6.3 % (1.0-12.0); Neutrophils % (Auto) 88.9 % (38.0-78.0); Platelet Count 173 K/mcL (140-440); Red Cell Distribution Width 17.2 % (11.5-14.5); WBC 14.3 K/mcL (4.5-11.0)
[2023-03-31 06:58] LABS: INR 10.9 (0.9-1.1); Prothrombin Time 89.3 sec (11.9-14.5)
[2023-03-31 07:02] LABS: ALT/SGPT 24 U/L (<40); AST/SGOT 27 U/L (<40); Albumin 3.1 gm/dL (3.2-5.2); Albumin/Globulin Ratio 1.3 (1.0-2.3); Alkaline Phosphatase 61 U/L (39-117); Blood Urea Nitrogen 28 mg/dL (8-23); Calcium 8.2 mg/dL (8.6-10.4); Carbon Dioxide 22 mmol/L (22-30); Chloride 103 mmol/L (96-108); Globulin 2.3 gm/dL (2.2-3.7); Glomerular Filtration Rate 57; Glucose 147 mg/dL (70-105)
[2023-03-31] MEDS: DOCUSATE SODIUM 100 MG CAPSULE PO SCH ×2 (08:16→20:13)
[2023-03-31] MEDS: INSULIN LISPRO 1 UNIT/0.01 ML UNIT SQ SCH ×4 (08:16→20:42)
[2023-03-31] MEDS ORDERED: PHYTONADIONE 10 MG in 0.9 % SODIUM CHLORIDE 50 ML IV ONE (10:24)
[2023-03-31] MEDS ORDERED: PIPERACILLIN SODIUM/TAZOBACTAM 3.375 GM in DEXTROSE 5% IN WATER 50 ML IV ONE (10:30)
[2023-03-31] MEDS ORDERED: VANCOMYCIN PER PHARMACY IV SCH (10:30)
[2023-03-31] MEDS: VANCOMYCIN 1,500 MG in 0.9 % SODIUM CHLORIDE 500 ML IV SCH ×2 (10:57→21:32)
[2023-03-31] MEDS: PIPERACILLIN SODIUM/TAZOBACTAM 3.375 GM in DEXTROSE 5% IN WATER 100 ML IV SCH ×3 (14:10→21:32)
[2023-03-31] MEDS: PANTOPRAZOLE 40 MG PACKET PO SCH (17:08)
[2023-03-31] MEDS: SENNOSIDES 1 TABLET PO SCH (20:14)
[2023-03-31] MEDS: levETIRAcetam 500 MG TABLET PO SCH (20:42)
[2023-03-31] MEDS: traZODone HCL 50 MG TABLET PO SCH (20:43)
[2023-03-31] MEDS: ATORVASTATIN 40 MG TABLET PO SCH (20:43)
[2023-03-31] MEDS: ALLOPURINOL 100 MG TABLET PO SCH (20:43)
[2023-03-31] MEDS: METHOCARBAMOL 500 MG TABLET PO SCH (20:45)
[2023-03-31] MEDS ORDERED: levETIRAcetam 750 MG in 0.9 % SODIUM CHLORIDE 100 ML IV SCH (21:00)
[2023-04-01] MEDS: 0.9 % SODIUM CHLORIDE 1,000 ML IV SCH ×3 (00:21→10:59)
[2023-04-01] MEDS: PIPERACILLIN SODIUM/TAZOBACTAM 3.375 GM in DEXTROSE 5% IN WATER 100 ML IV SCH ×3 (05:48→21:45)
[2023-04-01] MEDS: 0.9 % SODIUM CHLORIDE 10 ML SYRINGE IV SCH ×3 (05:49→20:27)
[2023-04-01 07:20] LABS: INR 1.6 (0.9-1.1); Prothrombin Time 19.8 sec (11.9-14.5)
[2023-04-01] MEDS: PANTOPRAZOLE 40 MG PACKET PO SCH ×2 (07:31→17:50)
[2023-04-01] MEDS: INSULIN LISPRO 1 UNIT/0.01 ML UNIT SQ SCH ×4 (07:32→20:26)
[2023-04-01 07:34] LABS: ALT/SGPT 18 U/L (<40); AST/SGOT 24 U/L (<40); Albumin 2.8 gm/dL (3.2-5.2); Albumin/Globulin Ratio 1.2 (1.0-2.3); Alkaline Phosphatase 63 U/L (39-117); Bilirubin,Total 0.9 mg/dL (0.1-1.0); Blood Urea Nitrogen 20 mg/dL (8-23); Carbon Dioxide 21 mmol/L (22-30); Chloride 109 mmol/L (96-108); Globulin 2.3 gm/dL (2.2-3.7); Glomerular Filtration Rate 93; Glucose 117 mg/dL (70-105)
[2023-04-01 07:53] LABS: Basophils # (Auto) 0.02 K/mcL (0.00-0.30); Basophils % (Auto) 0.2 % (0.0-2.0); Eosinophils # (Auto) 0.14 K/mcL (0.00-0.70); Eosinophils % (Auto) 1.6 % (0.0-7.0); Hematocrit 40.2 % (40.1-51.0); Hemoglobin 11.9 g/dL (13.7-17.5); Lymphocytes # (Auto) 0.66 K/mcL (1.50-4.80); Lymphocytes % (Auto) 7.7 % (15.5-49.0); Mean Cell Volume 86.6 fL (80.0-100.0); Mean Corpuscular HGB Conc 29.6 g/dL (31.0-36.0); Mean Platelet Volume 10.3 fL (8.8-12.5); Monocytes # (Auto) 0.68 K/mcL (0.10-0.90); Monocytes % (Auto) 7.9 % (1.0-12.0); Neutrophils % (Auto) 82.1 % (38.0-78.0); Platelet Count 148 K/mcL (140-440); RBC 4.64 M/mcL (4.63-6.08); Red Cell Distribution Width 17.6 % (11.5-14.5); WBC 8.6 K/mcL (4.5-11.0)
[2023-04-01] MEDS ORDERED: ACETAMINOPHEN 325 MG TABLET PO PRN (08:42)
[2023-04-01] MEDS ORDERED: LOPERAMIDE 2 MG CAPSULE PO PRN (08:43)
[2023-04-01] MEDS: INSULIN GLARGINE, HUMAN 1 UNIT/0.01 ML SQ SCH (09:08)
[2023-04-01] MEDS: buPROPion 150 MG TAB.XL.24H PO SCH (09:09)
[2023-04-01] MEDS: DOCUSATE SODIUM 100 MG CAPSULE PO SCH ×2 (09:09→20:27)
[2023-04-01] MEDS: TAMSULOSIN 0.4 MG CAPSULE PO SCH (09:11)
[2023-04-01] MEDS: VITAMIN D3 125 MCG TABLET PO SCH (09:11)
[2023-04-01] MEDS: levETIRAcetam 500 MG TABLET PO SCH ×2 (09:12→20:27)
[2023-04-01] MEDS: METHOCARBAMOL 500 MG TABLET PO SCH ×5 (09:12→20:27)
[2023-04-01] MEDS: VANCOMYCIN 1,500 MG in 0.9 % SODIUM CHLORIDE 500 ML IV SCH ×2 (10:13→21:45)
[2023-04-01] MEDS: ACETAMINOPHEN 1,000 MG/100 ML BAG IV PRN (12:28)
[2023-04-01] MEDS: ZOLPIDEM 5 MG TABLET PO PRN (20:27)
[2023-04-01] MEDS: traZODone HCL 50 MG TABLET PO SCH (20:27)
[2023-04-01] MEDS: SENNOSIDES 1 TABLET PO SCH (20:27)
[2023-04-01] MEDS: ATORVASTATIN 40 MG TABLET PO SCH (20:27)
[2023-04-01] MEDS: ALLOPURINOL 100 MG TABLET PO SCH (20:27)
[2023-04-01] MEDS: MELATONIN 3 MG TABLET PO SCH (20:27)
[2023-04-02] MEDS: PIPERACILLIN SODIUM/TAZOBACTAM 3.375 GM in DEXTROSE 5% IN WATER 100 ML IV SCH (05:20)
[2023-04-02] MEDS: 0.9 % SODIUM CHLORIDE 10 ML SYRINGE IV SCH ×3 (05:21→21:22)
[2023-04-02 06:42] LABS: Basophils # (Auto) 0.04 K/mcL (0.00-0.30); Basophils % (Auto) 0.6 % (0.0-2.0); Eosinophils # (Auto) 0.26 K/mcL (0.00-0.70); Eosinophils % (Auto) 4.2 % (0.0-7.0); Hematocrit 37.9 % (40.1-51.0); Hemoglobin 11.9 g/dL (13.7-17.5); Lymphocytes # (Auto) 0.77 K/mcL (1.50-4.80); Lymphocytes % (Auto) 12.5 % (15.5-49.0); Mean Cell Volume 81.5 fL (80.0-100.0); Mean Corpuscular HGB Conc 31.4 g/dL (31.0-36.0); Mean Platelet Volume 10.4 fL (8.8-12.5); Monocytes % (Auto) 9.7 % (1.0-12.0); Neutrophils % (Auto) 72.7 % (38.0-78.0); Platelet Count 176 K/mcL (140-440); RBC 4.65 M/mcL (4.63-6.08); Red Cell Distribution Width 17.2 % (11.5-14.5); WBC 6.2 K/mcL (4.5-11.0)
[2023-04-02 07:05] LABS: ALT/SGPT 29 U/L (<40); AST/SGOT 25 U/L (<40); Albumin/Globulin Ratio 1.3 (1.0-2.3); Alkaline Phosphatase 72 U/L (39-117); Bilirubin,Direct 0.3 mg/dL (<0.3); Bilirubin,Total 0.6 mg/dL (0.1-1.0); Blood Urea Nitrogen 13 mg/dL (8-23); Calcium 8.6 mg/dL (8.6-10.4); Carbon Dioxide 24 mmol/L (22-30); Chloride 106 mmol/L (96-108); Globulin 2.3 gm/dL (2.2-3.7); Glomerular Filtration Rate 93; Glucose 146 mg/dL (70-105); Lactate Dehydrogenase 369 U/L (135-225); Phosphorous 2.1 mg/dL (2.5-4.5); Triglycerides 144 mg/dL (<150); Uric Acid 3.8 mg/dL (2.5-8.0)
[2023-04-02 07:07] LABS: INR 1.4 (0.9-1.1); Prothrombin Time 17.7 sec (11.9-14.5)
[2023-04-02] MEDS: PANTOPRAZOLE 40 MG PACKET PO SCH ×2 (07:18→16:33)
[2023-04-02] MEDS: INSULIN LISPRO 1 UNIT/0.01 ML UNIT SQ SCH ×4 (07:18→21:14)
[2023-04-02] MEDS ORDERED: hydrALAZINE 20 MG/ML VIAL IV PRN (08:06)
[2023-04-02] MEDS ORDERED: MAGNESIUM SULFATE 2 GM/50 ML BAG IV SCH (08:08)
[2023-04-02] MEDS ORDERED: METOPROLOL TARTRATE 25 MG TABLET PO SCH (09:00)
[2023-04-02] MEDS: levETIRAcetam 500 MG TABLET PO SCH ×2 (09:15→21:13)
[2023-04-02] MEDS: DOCUSATE SODIUM 100 MG CAPSULE PO SCH ×2 (09:15→21:12)
[2023-04-02] MEDS: INSULIN GLARGINE, HUMAN 1 UNIT/0.01 ML SQ SCH (09:16)
[2023-04-02] MEDS: METHOCARBAMOL 500 MG TABLET PO SCH ×3 (09:16→21:12)
[2023-04-02] MEDS: LISINOPRIL 2.5 MG TABLET PO SCH (09:16)
[2023-04-02] MEDS: VITAMIN D3 125 MCG TABLET PO SCH (09:16)
[2023-04-02] MEDS: PHOSPHORUS 250 MG TABLET PO SCH ×4 (09:16→21:11)
[2023-04-02] MEDS: buPROPion 150 MG TAB.XL.24H PO SCH (09:16)
[2023-04-02] MEDS: TAMSULOSIN 0.4 MG CAPSULE PO SCH (09:16)
[2023-04-02] MEDS: MUPIROCIN OINT 2% 22GM NARES SCH ×2 (09:36→21:13)
[2023-04-02] MEDS: VANCOMYCIN 1,500 MG in 0.9 % SODIUM CHLORIDE 500 ML IV SCH (12:12)
[2023-04-02] MEDS: VANCOMYCIN 1,750 MG in 0.9 % SODIUM CHLORIDE 500 ML IV SCH (13:40)
[2023-04-02] MEDS: WARFARIN 5 MG TABLET PO SCH (13:42)
[2023-04-02] MEDS: PIPERACILLIN SODIUM/TAZOBACTAM 3.375 GM in 0.9 % SODIUM CHLORIDE 100 ML IV SCH ×2 (15:18→21:14)
[2023-04-02] MEDS: SENNOSIDES 1 TABLET PO SCH (21:10)
[2023-04-02] MEDS: ALLOPURINOL 100 MG TABLET PO SCH (21:11)
[2023-04-02] MEDS: ATORVASTATIN 40 MG TABLET PO SCH (21:11)
[2023-04-02] MEDS: traZODone HCL 50 MG TABLET PO SCH (21:12)
[2023-04-02] MEDS: MELATONIN 3 MG TABLET PO SCH (21:12)
[2023-04-02] MEDS: SCOPOLAMINE 1 PATCH PATCH TOPICAL SCH (21:13)
[2023-04-03] MEDS: VANCOMYCIN 1,750 MG in 0.9 % SODIUM CHLORIDE 500 ML IV SCH (01:36)
[2023-04-03] MEDS: 0.9 % SODIUM CHLORIDE 10 ML SYRINGE IV SCH ×3 (06:34→20:16)
[2023-04-03] MEDS: PIPERACILLIN SODIUM/TAZOBACTAM 3.375 GM in 0.9 % SODIUM CHLORIDE 100 ML IV SCH (06:34)
[2023-04-03 06:40] LABS: Basophils # (Auto) 0.04 K/mcL (0.00-0.30); Basophils % (Auto) 0.7 % (0.0-2.0); Eosinophils # (Auto) 0.25 K/mcL (0.00-0.70); Eosinophils % (Auto) 4.3 % (0.0-7.0); Hematocrit 38.3 % (40.1-51.0); Hemoglobin 11.8 g/dL (13.7-17.5); Lymphocytes # (Auto) 0.88 K/mcL (1.50-4.80); Lymphocytes % (Auto) 15.2 % (15.5-49.0); Mean Cell Volume 82.2 fL (80.0-100.0); Mean Corpuscular HGB Conc 30.8 g/dL (31.0-36.0); Mean Platelet Volume 10.3 fL (8.8-12.5); Monocytes # (Auto) 0.74 K/mcL (0.10-0.90); Monocytes % (Auto) 12.8 % (1.0-12.0); Neutrophils % (Auto) 66.5 % (38.0-78.0); Platelet Count 196 K/mcL (140-440); RBC 4.66 M/mcL (4.63-6.08); Red Cell Distribution Width 17.1 % (11.5-14.5); WBC 5.8 K/mcL (4.5-11.0)
[2023-04-03 06:55] LABS: INR 1.7 (0.9-1.1); Prothrombin Time 20.2 sec (11.9-14.5)
[2023-04-03 07:05] LABS: ALT/SGPT 43 U/L (<40); AST/SGOT 42 U/L (<40); Albumin 2.7 gm/dL (3.2-5.2); Albumin/Globulin Ratio 1.1 (1.0-2.3); Alkaline Phosphatase 84 U/L (39-117); Bilirubin,Direct 0.2 mg/dL (<0.3); Bilirubin,Total 0.5 mg/dL (0.1-1.0); Blood Urea Nitrogen 9 mg/dL (8-23); Calcium 8.4 mg/dL (8.6-10.4); Carbon Dioxide 24 mmol/L (22-30); Chloride 105 mmol/L (96-108); Globulin 2.4 gm/dL (2.2-3.7); Glomerular Filtration Rate 93; Glucose 119 mg/dL (70-105); Lactate Dehydrogenase 339 U/L (135-225); Phosphorous 3.1 mg/dL (2.5-4.5); Triglycerides 135 mg/dL (<150); Uric Acid 3.9 mg/dL (2.5-8.0)
[2023-04-03] MEDS: INSULIN LISPRO 1 UNIT/0.01 ML UNIT SQ SCH ×4 (07:55→20:16)
[2023-04-03] MEDS: LISINOPRIL 2.5 MG TABLET PO SCH (08:02)
[2023-04-03] MEDS: buPROPion 150 MG TAB.XL.24H PO SCH (08:02)
[2023-04-03] MEDS: VITAMIN D3 125 MCG TABLET PO SCH (08:02)
[2023-04-03] MEDS: TAMSULOSIN 0.4 MG CAPSULE PO SCH (08:02)
[2023-04-03] MEDS: METHOCARBAMOL 500 MG TABLET PO SCH (08:03)
[2023-04-03] MEDS: MUPIROCIN OINT 2% 22GM NARES SCH ×2 (08:03→20:14)
[2023-04-03] MEDS: PANTOPRAZOLE 40 MG PACKET PO SCH ×2 (08:03→17:48)
[2023-04-03] MEDS: levETIRAcetam 500 MG TABLET PO SCH ×2 (08:03→20:15)
[2023-04-03] MEDS: DOCUSATE SODIUM 100 MG CAPSULE PO SCH ×2 (08:03→20:15)
[2023-04-03] MEDS ORDERED: METHOCARBAMOL 500 MG TABLET PO PRN (08:33)
[2023-04-03] MEDS: INSULIN GLARGINE, HUMAN 1 UNIT/0.01 ML SQ SCH (09:45)
[2023-04-03] MEDS ORDERED: MAGNESIUM SULFATE 2 GM/50 ML BAG IV SCH (09:52)
[2023-04-03] MEDS: cefTRIAXone 2 GM in DEXTROSE 5% IN WATER 50 ML IV SCH (11:30)
[2023-04-03] MEDS: WARFARIN 5 MG TABLET PO SCH (13:28)
[2023-04-03] MEDS ORDERED: PIPERACILLIN SODIUM/TAZOBACTAM 3.375 GM in DEXTROSE 5% IN WATER 100 ML IV SCH (14:00)
[2023-04-03] MEDS: SENNOSIDES 1 TABLET PO SCH (20:14)
[2023-04-03] MEDS: ATORVASTATIN 40 MG TABLET PO SCH (20:14)
[2023-04-03] MEDS: traZODone HCL 50 MG TABLET PO SCH (20:15)
[2023-04-03] MEDS: MELATONIN 3 MG TABLET PO SCH (20:15)
[2023-04-03] MEDS: ALLOPURINOL 100 MG TABLET PO SCH (20:15)
[2023-04-03] MEDS: ZOLPIDEM 5 MG TABLET PO PRN (22:36)
[2023-04-04] MEDS: 0.9 % SODIUM CHLORIDE 10 ML SYRINGE IV SCH ×3 (04:41→21:11)
[2023-04-04 06:08] LABS: Basophils # (Auto) 0.04 K/mcL (0.00-0.30); Basophils % (Auto) 0.7 % (0.0-2.0); Eosinophils # (Auto) 0.25 K/mcL (0.00-0.70); Eosinophils % (Auto) 4.1 % (0.0-7.0); Hematocrit 39.4 % (40.1-51.0); Hemoglobin 12.2 g/dL (13.7-17.5); Lymphocytes # (Auto) 0.83 K/mcL (1.50-4.80); Lymphocytes % (Auto) 13.7 % (15.5-49.0); Mean Cell Volume 81.6 fL (80.0-100.0); Monocytes # (Auto) 0.64 K/mcL (0.10-0.90); Monocytes % (Auto) 10.5 % (1.0-12.0); Neutrophils % (Auto) 70.2 % (38.0-78.0); Platelet Count 230 K/mcL (140-440); RBC 4.83 M/mcL (4.63-6.08); Red Cell Distribution Width 16.8 % (11.5-14.5); WBC 6.1 K/mcL (4.5-11.0)
[2023-04-04 06:32] LABS: Prothrombin Time 23.6 sec (11.9-14.5)
[2023-04-04] MEDS: PANTOPRAZOLE 40 MG PACKET PO SCH ×2 (07:23→16:43)
[2023-04-04] MEDS ORDERED: cefTRIAXone 2 GM VIAL ONE (08:58)
[2023-04-04] MEDS: levETIRAcetam 500 MG TABLET PO SCH ×2 (09:04→21:11)
[2023-04-04] MEDS: INSULIN GLARGINE, HUMAN 1 UNIT/0.01 ML SQ SCH (09:04)
[2023-04-04] MEDS: TAMSULOSIN 0.4 MG CAPSULE PO SCH (09:04)
[2023-04-04] MEDS: buPROPion 150 MG TAB.XL.24H PO SCH (09:04)
[2023-04-04] MEDS: DOCUSATE SODIUM 100 MG CAPSULE PO SCH ×2 (09:04→21:10)
[2023-04-04] MEDS: LISINOPRIL 2.5 MG TABLET PO SCH (09:04)
[2023-04-04] MEDS: MUPIROCIN OINT 2% 22GM NARES SCH ×2 (09:05→21:10)
[2023-04-04] MEDS: INSULIN LISPRO 1 UNIT/0.01 ML UNIT SQ SCH ×4 (09:05→21:05)
[2023-04-04] MEDS: cefTRIAXone 2 GM in DEXTROSE 5% IN WATER 50 ML IV SCH (09:07)
[2023-04-04] MEDS ORDERED: MAGNESIUM SULFATE 1 GM/100 ML BAG IV SCH (10:08)
[2023-04-04] MEDS: WARFARIN 5 MG TABLET PO SCH (14:48)
[2023-04-04] MEDS: traZODone HCL 50 MG TABLET PO SCH (21:10)
[2023-04-04] MEDS: SENNOSIDES 1 TABLET PO SCH (21:10)
[2023-04-04] MEDS: ATORVASTATIN 40 MG TABLET PO SCH (21:10)
[2023-04-04] MEDS: ALLOPURINOL 100 MG TABLET PO SCH (21:10)
[2023-04-04] MEDS: MELATONIN 3 MG TABLET PO SCH (21:11)
[2023-04-05] MEDS: 0.9 % SODIUM CHLORIDE 10 ML SYRINGE IV SCH (05:03)
[2023-04-05 06:20] LABS: INR 2.1 (0.9-1.1); Prothrombin Time 24.1 sec (11.9-14.5)
[2023-04-05] MEDS: PANTOPRAZOLE 40 MG PACKET PO SCH (07:49)
[2023-04-05] MEDS: INSULIN LISPRO 1 UNIT/0.01 ML UNIT SQ SCH (07:50)
[2023-04-05] MEDS: INSULIN GLARGINE, HUMAN 1 UNIT/0.01 ML SQ SCH (08:37)
[2023-04-05] MEDS: levETIRAcetam 500 MG TABLET PO SCH (08:38)
[2023-04-05] MEDS: LISINOPRIL 2.5 MG TABLET PO SCH (08:38)
[2023-04-05] MEDS: DOCUSATE SODIUM 100 MG CAPSULE PO SCH (08:38)
[2023-04-05] MEDS: buPROPion 150 MG TAB.XL.24H PO SCH (08:38)
[2023-04-05] MEDS: TAMSULOSIN 0.4 MG CAPSULE PO SCH (08:38)
[2023-04-05] MEDS: MUPIROCIN OINT 2% 22GM NARES SCH (08:38)
[2023-04-05] MEDS: cefTRIAXone 2 GM in DEXTROSE 5% IN WATER 50 ML IV SCH (08:47)
== END 2023-04-05 11:20 | DRG 871 ==
LOC: ED 12:19 → ICU 19:20 → MEDSUR 04-03 05:55
PROVIDERS: ADMIT Internal Medicine; ATTEND Internal Medicine